=== PATIENT | female | born 1960 | race Caucasian/White ===

== ENCOUNTER 2017-06-16 08:00 | Inpatient (IN) | payer OTHER ==
[~2017-06-16] VITALS: Ht 160 cm; Wt 73.0 kg
[2017-06-16] MEDS ORDERED: LOSARTAN-HCTZ1 EACH PO (09:09)
[2017-06-16] MEDS ORDERED: METFORMIN HCL500 MG PO (09:09)
[2017-06-24] MEDS ORDERED: AMOXICILLIN875 MG PO (10:11)
[2017-06-24] MEDS ORDERED: PERCOCET 5-3251 EACH PO (10:11)
[2017-06-24] MEDS ORDERED: GABAPENTIN800 MG PO (10:11)
[2017-06-24] MEDS ORDERED: CLONAZEPAM1 MG PO (10:11)
[2017-06-24] MEDS ORDERED: DOCUSATE SODIU100 MG PO (10:11)
== END 2017-06-24 13:43 | disposition home or self-care (01) | DRG 460 ==
LOC: PED 06-23 04:44 → O/R 06-23 04:44 → SURH 06-23 08:00 → PED 06-23 12:01
PROVIDERS: Orthopaedic Surgery Orthopaedic Surgery of the Spine
PROC: 0SG00AJ Fusion of Lumbar Vertebral Joint with Interbody Fusion Device, Posterior Approach, Anterior Column, Open Approach (ICD-10-PCS; 2017-06-23)
PROC: 0ST20ZZ Resection of Lumbar Vertebral Disc, Open Approach (ICD-10-PCS; 2017-06-23)
PROC: 07DS3ZZ Extraction of Vertebral Bone Marrow, Percutaneous Approach (ICD-10-PCS; 2017-06-23)
PROC: 0SG00A0 Fusion of Lumbar Vertebral Joint with Interbody Fusion Device, Anterior Approach, Anterior Column, Open Approach (ICD-10-PCS; principal; 2017-06-23 09:45)
DX: M47.896 Other spondylosis, lumbar region (principal); E11.9 Type 2 diabetes mellitus without complications; I10 Essential (primary) hypertension; M51.16 Intervertebral disc disorders with radiculopathy, lumbar region